=== PATIENT | male | born 1965 | race Caucasian/White ===

== ENCOUNTER 2025-05-31 17:51 | Emergency (ER) | payer BC ==
[2025-05-31] MEDS: Sodium Chloride 0.9% 10 ML Syringe FLUSH PRN (18:09)
[2025-05-31] MEDS: methylPREDNISolone Sodium Succinate 125 MG/2 ML SDV IVPUSH ONE (18:09)
== END 2025-05-31 21:00 | disposition home or self-care (01) ==
LOC: JD.ED 17:51
DX: T78.2XXA Anaphylactic shock, unspecified, initial encounter (principal); Z91.038 Other insect allergy status; Z79.899 Other long term (current) drug therapy
CPT/HCPCS: 96374; 96375; 99284; J1308; J2919; J1171